=== PATIENT | female | born 1970 | race Caucasian/White ===

== ENCOUNTER 2022-10-12 14:03 | Emergency (ER) | payer BC ==
[2022-10-12] MEDS ORDERED: oxyCODONE 5 MG Tab PO STA (14:59)
== END 2022-10-12 17:41 | disposition home or self-care (01) ==
LOC: MW.ED 14:03
DX: M17.12 Unilateral primary osteoarthritis, left knee (principal); E03.9 Hypothyroidism, unspecified; Z79.899 Other long term (current) drug therapy; X50.1XXA Overexertion from prolonged static or awkward postures, initial encounter
CPT/HCPCS: 73562; 93971; 99284; A9270

== ENCOUNTER 2023-10-02 06:32 | Day surgery (SDC) | payer BC ==
[~2023-10-02 06:32] MED LIST: Sodium Chloride 0.9% 10 ML Syringe FLUSH PRN; Sodium Chloride 0.9% 2.5 ML Syringe FLUSH PRN; Sodium Chloride 0.9% 20 ML SDV IV PRN; ceFAZolin 2 GM in Sodium Chloride 0.9% 50 ML IV ONE
[2023-10-02] MEDS: Lactated Ringers 1,000 ML IV SCH (06:53)
[2023-10-02] MEDS ORDERED: propofoL 100 ML ONE (07:04)
[2023-10-02] MEDS ORDERED: Naloxone 0.4 MG/ML SDV IVPUSH PRN (07:14)
[2023-10-02] MEDS ORDERED: Albuterol 0.083% 2.5 MG/3 ML Neb Soln NEB PRN (07:14)
[2023-10-02] MEDS ORDERED: Ondansetron 4 MG/2 ML SDV IVPUSH PRN (07:14)
[2023-10-02] MEDS ORDERED: Metoclopramide 10 MG/2 ML SDV IVPUSH PRN (07:14)
[2023-10-02] MEDS ORDERED: HYDROmorphone 1 MG/ML Syringe IVPUSH PRN (07:14)
[2023-10-02] MEDS ORDERED: Scopalamine 1mg/3day Transdermal Patch ONE (07:14)
[2023-10-02] MEDS ORDERED: Morphine 2 MG/ML SYRINGE IVPUSH PRN (07:14)
[2023-10-02] MEDS ORDERED: fentaNYL 50 MCG/ML SDV IVPUSH PRN (07:14)
[2023-10-02] MEDS ORDERED: droPERidol 5 MG/2 ML SDV IVPUSH PRN (07:14)
[2023-10-02] MEDS: Scopalamine 1mg/3day Transdermal Patch TOP ONE (07:17)
[2023-10-02] MEDS ORDERED: Lidocaine 1% 20 ML MDV ONE (07:21)
[2023-10-02] MEDS ORDERED: Bupivacaine 0.5% 30 ML SDV ONE (07:21)
[2023-10-02] MEDS ORDERED: Methylene Blue 100 MG/10 ML SDV ONE (07:22)
[2023-10-02] MEDS ORDERED: fentaNYL 100 MCG/2 ML SDV ONE (07:30)
[2023-10-02] MEDS ORDERED: Ketorolac 30 MG/ML SDV ONE (07:30)
[2023-10-02] MEDS ORDERED: Ondansetron 4 MG/2 ML SDV ONE (07:30)
[2023-10-02] MEDS ORDERED: ceFAZolin 2 GM Vial ONE (08:17)
== END 2023-10-02 09:55 | disposition home or self-care (01) ==
LOC: MW.SDS 06:32
PROVIDERS: ATTEND Surgery
DX: N60.32 Fibrosclerosis of left breast (principal); E66.3 Overweight; Z79.899 Other long term (current) drug therapy; Z88.8 Allergy status to other drugs, medicaments and biological substances
CPT/HCPCS: 19120; A9270; J0665; J0690; J1885; J2405; J2704; J3010; J7120; Q9968; J3490

== ENCOUNTER 2025-02-27 12:27 | Emergency (ER) | payer BC ==
[2025-02-27] MEDS: Diphtheria,Pertussis(Acell),Tetanus Vaccine 0.5 ML Syringe IM ONE (13:23)
== END 2025-02-27 13:47 | disposition home or self-care (01) ==
LOC: MW.ED 12:27
DX: S90.852A Superficial foreign body, left foot, initial encounter (principal); Z23 Encounter for immunization; Z88.8 Allergy status to other drugs, medicaments and biological substances; Z79.899 Other long term (current) drug therapy; Z79.890 Hormone replacement therapy; Z90.710 Acquired absence of both cervix and uterus; W45.8XXA Other foreign body or object entering through skin, initial encounter
CPT/HCPCS: 28190; 90471; 90715; 99283; J2003